=== PATIENT | female | born 1990 | race Caucasian/White ===

== ENCOUNTER 2024-03-09 13:26 | Emergency (ER) | payer OTHER ==
[~2024-03-09] VITALS: Ht 165.1 cm; Wt 105.0 kg
[2024-03-09 13:30] VITALS: TEMP 97.9; O2SAT 98
[2024-03-09 13:50] LABS: BASOPHILS % 0.9 % (0.0-2.0); DIFFERENTIAL COMMENT 0; EOSINOPHILS % 1.6 % (0.0-5.0); HEMATOCRIT. 41.8 % (36.0-48.0); HEMOGLOBIN. 14.5 g/dL (12.0-16.0); LYMPHOCYTES % 27.4 % (20.0-50.0); MEAN CORPUSCULAR HGB CONC 34.8 g/dL (31.0-37.0); MEAN CORPUSCULAR VOLUME 74.7 fL (81.0-99.0); MONOCYTES % 4.1 % (2.0-8.0); PLATELET 365 x1000/uL (130-400); RED CELL DISTRIBUTION WIDTH 16.4 % (11.6-14.6)
[2024-03-09 13:57] LABS: CHLORIDE 106 mEq/L (98-107); SODIUM 138 mEq/L (136-145)
[2024-03-09 13:58] LABS: CALCIUM 10.4 mg/dL (8.7-10.4); CARBON DIOXIDE 26 mEq/L (21-32)
[2024-03-09 14:01] LABS: HCG SCREEN NEGATIVE
[2024-03-09 14:03] LABS: CREATININE 0.7 mg/dL (0.6-1.0); GLUCOSE 93 mg/dL (70-105); UREA NITROGEN BLOOD 11 mg/dL (9-23)
[2024-03-09 14:04] LABS: TROPONIN I HIGH SENSITIVITY < 4 ng/L (3.0-34)
[2024-03-09] MEDS: HYDROXYZINE 25MG TABLET PO ONE (14:54)
[2024-03-09 15:30] LABS: ETHANOL BLOOD < 10 mg/dL (<10)
[2024-03-09] MEDS: ACETAMINOPHEN 500MG TABLET PO ONE (15:40)
[2024-03-09 16:20] VITALS: BP 186/76; PULSE 56; RESP 16
== END 2024-03-09 16:25 | disposition home or self-care (01) ==
LOC: ER 14:29
DX: F41.9 Anxiety disorder, unspecified (principal); R10.9 Unspecified abdominal pain; R06.02 Shortness of breath; E78.00 Pure hypercholesterolemia, unspecified
CPT/HCPCS: 36415; 80048; 80320; 84484; 84703; 85025; 93005; 99284; G0480